=== PATIENT | male | born 1975 | race Caucasian/White ===

== ENCOUNTER 2022-11-09 04:48 | Emergency (ER) | payer SELFPAY ==
[~2022-11-09] VITALS: Ht 172.7 cm; Wt 108.3 kg
[2022-11-09 06:12] LABS: BASOPHILS % 0.3 % (0.0-2.0); EOSINOPHILS % 0.2 % (0.0-5.0); HEMATOCRIT. 44.4 % (42.0-52.0); HEMOGLOBIN. 15.7 g/dL (14.0-18.0); LYMPHOCYTES % 16.4 % (20.0-50.0); MEAN CORPUSCULAR HEMOGLOBIN 31.6 pg (28.0-32.0); MEAN CORPUSCULAR VOLUME 89.4 fL (80.0-94.0); MEAN PLATELET VOLUME 8.3 fl (7.4-10.4); MONOCYTES % 4.2 % (2.0-8.0); NEUTROPHILS % 78.9 % (40.0-76.0); PLATELET 220 x1000/uL (130-400); RED BLOOD CELL COUNT 4.97 mill/uL (4.7-6.1); RED CELL DISTRIBUTION WIDTH 12.9 % (11.6-14.6)
[2022-11-09 06:17] VITALS: BP 146/85
[2022-11-09 06:20] LABS: CHLORIDE 102 mEq/L (98-107)
== END 2022-11-09 07:23 | disposition home or self-care (01) ==
LOC: ER 04:48
DX: R00.2 Palpitations (principal); T40.711A Poisoning by cannabis, accidental (unintentional), initial encounter; Y92.9 Unspecified place or not applicable
CPT/HCPCS: 36415; 71045; 80053; 84484; 85025; 93005; 99285